=== PATIENT | female | born 1940 | race Caucasian/White ===

== ENCOUNTER 2020-04-06 22:06 | Inpatient (IN) | payer MEDICARE, OTHER ==
[~2020-04-06] VITALS: Ht 167.6 cm; Wt 91.4 kg
[~2020-04-06 22:06] MED LIST: ACET-2065 PO; ACID1TAB PO; ASCO500T7 PO; ATOR10TA9 PO; BETH10TA12 PO; CARV3.122 PO; FAMO20TA7 PO; GABA-827 PO; INSU100C5 SQ-INSULIN; INSU100V13 SQ; INSU100V5 SQ-INSULIN; LEVO125T5 PO; LEVO500T8 PO; LINE600T12 PO; LISI-167 PO; MYCO180T10 PO; MYCO250C PO; OXYC15TA75 PO; PRED2.5T PO; SODI650T PO; TACR1CAP5 PO; TAMS0.4C2 PO
--- NOTE | 2020-04-06 22:15 | NUR ---
pt BIB [facility] from [facility] c/o hypoxia. per report, pt is on 2L O2 via [place] at baseline and had to be increased to 5L at her facility where they stated that she was 65%. per [facility], when arrived on scene, pt was 89% and was palced on 2L and went back to 98%. upon arival, pt is currently 98-99% on 2L O2 via [place]. pt has no c/o SOB. per report pt was also sent for low Hgb at 7.4. pt was recently hospitlized and treated for GI bleed. pt also has hx of chronic anemia. pt is A&O x4. pale warm and dry. pt stated to [facility] that she was "dropped" by the staff at [facility] 2 months ago and has buttock pain
[2020-04-06] MEDS ORDERED: SODIUM CHLORIDE FLUSH 10ML SYR IVF ONE (22:30)
[2020-04-06 22:50] LABS: BASOPHILS # (AUTO) 0.01 x10^3/uL (0-0.1); BASOPHILS % (AUTO) 0 % (0-1); EOSINOPHILS # (AUTO) 0.08 x10^3/uL (0-0.4); EOSINOPHILS % (AUTO) 2 % (1-7); LYMPHOCYTES # (AUTO) 0.75 x10^3/uL (1-3.4); LYMPHOCYTES % (AUTO) 14 % (22-44); MD NO; MEAN CORPUSCULAR HEMOGLOBIN 30.4 pg (27.0-34.8); MEAN PLATELET VOLUME 8.1 fL (7.4-10.4); MONOCYTES # (AUTO) 0.34 x10^3/uL (0.2-0.8); MONOCYTES % (AUTO) 6 % (2-9); NEUTROPHILS % (AUTO) 78 % (42-75); PLATELET COUNT 154 x10^3/uL (130-400); RED BLOOD COUNT 2.55 x10^6/uL (3.82-5.3); RED CELL DISTRIBUTION WIDTH 16.9 % (9.6-15.2)
[2020-04-06 22:59] LABS: ALANINE AMINOTRANSFERASE 12 U/L (12-78); ALBUMIN 2.4 g/dL (3.4-5.0); ANION GAP 8 mmol/L (5-15); CALCIUM 8.5 mg/dL (8.5-10.1); CHLORIDE 102 mmol/L (98-107); CREATININE 2.43 mg/dL (0.55-1.02)
[2020-04-06 23:03] LABS: ALKALINE PHOSPHATASE 87 U/L (45-117); BILIRUBIN,TOTAL 0.5 mg/dL (0.2-1.0); TOTAL PROTEIN 5.4 g/dL (6.4-8.2); TROPONIN I < 0.015 ng/mL (0.000-0.045)
[2020-04-06] MEDS ORDERED: SODIUM CHLORIDE 0.9% 1,000 ML IV ONE (23:11)
--- NOTE | 2020-04-07 00:26 | NUR ---
hospitalist at bedside for eval for admission
[2020-04-07] MEDS ORDERED: SODIUM CHLORIDE 0.9% 1,000 ML IV SCH (00:37)
--- NOTE | 2020-04-07 00:50 | NUR ---
pt positioninf for comfort. pt watching TV
[2020-04-07] MEDS ORDERED: morphine SULFATE 10 MG/ML, 1ML IVPush PRN (01:00)
[2020-04-07] MEDS ORDERED: ONDANSETRON ODT 4 MG PO PRN (01:00)
[2020-04-07] MEDS ORDERED: ONDANSETRON 2MG/ML, 2ML IVPush PRN (01:00)
[2020-04-07] MEDS ORDERED: LABETALOL 5MG/ML, 20ML IVPush PRN (01:00)
[2020-04-07] MEDS ORDERED: OXYcodone IR 5MG TABLET PO PRN (01:00)
[2020-04-07] MEDS ORDERED: BISACODYL 10 MG SUPP PR PRN (01:00)
[2020-04-07] MEDS ORDERED: POLYETHYLENE GLYCOL 17 GM PACKET PO PRN (01:00)
[2020-04-07] MEDS ORDERED: DOCUSATE 100 MG CAPSULE PO PRN (01:00)
[2020-04-07] MEDS ORDERED: ACETAMINOPHEN 325 MG TABLET PO PRN (01:00)
[2020-04-07] MEDS ORDERED: PROMETHAZINE 25 MG/ML, 1ML IM PRN (01:00)
[2020-04-07 01:17] LABS: FREE T4 (FREE THYROXINE) 1.13 ng/dL (0.76-1.46)
--- NOTE | 2020-04-07 01:35 | NUR ---
pt is incontinent of stool. pt cleaned and prei care given. pt has a wound on coccyx area. wound care done with wound cleanser, hydrogel applied and non-adhesive dressing. bartrier cream applied to posterior area. fresh linens applied and pt placed on waffle mattress for comfort
--- NOTE | 2020-04-07 01:37 | NUR ---
bed assignment recieved, attmepting to call report
--- NOTE | 2020-04-07 01:42 | NUR ---
report called to Yesy SANTOS
--- NOTE | 2020-04-07 01:56 | NUR ---
paperwork that was sent from [facility] did not include aa medication list and pt is unsure of her medications. admit MD and recieving RN aware
[2020-04-07 02:16] VITALS: BP 147/54
[2020-04-07] MEDS ORDERED: GABA100C PO (04:17)
[2020-04-07] MEDS ORDERED: ATOR-2 PO (04:20)
[2020-04-07] MEDS ORDERED: BUME1TAB21 PO (04:21)
[2020-04-07] MEDS ORDERED: OMEP-231 PO (04:25)
[2020-04-07] MEDS ORDERED: ISOS30TA8 PO (04:29)
[2020-04-07] MEDS ORDERED: LEVO50TA5 PO (04:36)
[2020-04-07] MEDS ORDERED: INSU100V8 SQ ×2 (04:42→04:45)
[2020-04-07] MEDS ORDERED: FERR325T5 PO (04:42)
[2020-04-07] MEDS ORDERED: CARV-39 PO (04:50)
[2020-04-07] MEDS ORDERED: DILT120C83 PO (04:50)
[2020-04-07 05:17] LABS: ALBUMIN 2.3 g/dL (3.4-5.0); ANION GAP 5 mmol/L (5-15); CALCIUM 8.3 mg/dL (8.5-10.1); CHLORIDE 106 mmol/L (98-107)
[2020-04-07 05:20] LABS: ALANINE AMINOTRANSFERASE 10 U/L (12-78); ALKALINE PHOSPHATASE 82 U/L (45-117); BILIRUBIN,TOTAL 0.3 mg/dL (0.2-1.0); CHOL/HDL RATIO 2.6; CHOLESTEROL, TOTAL 111 mg/dL (140-239); CREATININE 2.07 mg/dL (0.55-1.02); HDL CHOL % 38 % (28-40); HDL CHOLESTEROL (DIRECT) 42 mg/dL (40-60); LDL CHOLESTEROL,CALCULATED 38 mg/dL (54-169); LDL/HDL RATIO 0.9 (0.5-3.0); TOTAL PROTEIN 4.8 g/dL (6.4-8.2); TRIGLYCERIDES 153 mg/dL (50-200); VLDL CHOLESTEROL 31 mg/dL (0-25)
[2020-04-07 05:32] LABS: MEAN CORPUSCULAR HEMOGLOBIN 30.3 pg (27.0-34.8); MEAN CORPUSCULAR HGB CONC 31.7 g/dL (32.4-35.8); MEAN CORPUSCULAR VOLUME 95.7 fL (80-100); MEAN PLATELET VOLUME 8.4 fL (7.4-10.4); PLATELET COUNT 148 x10^3/uL (130-400); RED BLOOD COUNT 2.33 x10^6/uL (3.82-5.3); RED CELL DISTRIBUTION WIDTH 17.2 % (9.6-15.2)
[2020-04-07 05:45] LABS: MICROSCOPIC INDICATED
[2020-04-07 06:05] LABS: BASOPHILS # (AUTO) 0.01 x10^3/uL (0-0.1); BASOPHILS % (AUTO) 0 % (0-1); EOSINOPHILS # (AUTO) 0.07 x10^3/uL (0-0.4); EOSINOPHILS % (AUTO) 2 % (1-7); LYMPHOCYTES # (AUTO) 0.78 x10^3/uL (1-3.4); LYMPHOCYTES % (AUTO) 18 % (22-44); MD SCAN; MONOCYTES # (AUTO) 0.35 x10^3/uL (0.2-0.8); MONOCYTES % (AUTO) 8 % (2-9); NEUTROPHILS % (AUTO) 72 % (42-75)
[2020-04-07] MEDS: INSULIN LISPRO 100 UNITS/ML, PEN SQ-INSULIN SCH ×4 (07:00→20:25)
[2020-04-07 07:34] VITALS: BP 154/71
[2020-04-07] MEDS: OMEPRAZOLE 20 MG CAPSULE.DR PO SCH ×2 (09:00→20:25)
[2020-04-07] MEDS: LEVOTHYROXINE 100 MCG TABLET PO SCH (09:21)
[2020-04-07] MEDS: BUMETANIDE 1 MG TABLET PO SCH (09:22)
[2020-04-07] MEDS: FERROUS SULFATE 325 MG TABLET PO SCH ×3 (09:22→20:25)
[2020-04-07] MEDS: CARVEDILOL 25 MG TABLET PO SCH ×2 (09:22→20:25)
[2020-04-07] MEDS: GABAPENTIN 100 MG CAPSULE PO SCH ×3 (09:22→20:25)
[2020-04-07] MEDS: DILTIAZEM 120 MG CAP.ER.24H PO SCH ×2 (09:22→20:25)
[2020-04-07] MEDS: ISOSORBIDE MONONITRATE ER 30 MG TABLET PO SCH (09:22)
[2020-04-07] MEDS: TACROLIMUS 1 MG CAPSULE PO SCH ×2 (09:23→17:55)
[2020-04-07 13:23] VITALS: BP 133/67
[2020-04-07 19:10] VITALS: BP 144/74
[2020-04-07] MEDS: ATORVASTATIN 80 MG TABLET PO SCH (20:25)
[2020-04-08 00:36] VITALS: BP 132/72
[2020-04-08 05:32] LABS: ANION GAP 6 mmol/L (5-15); CHLORIDE 106 mmol/L (98-107); CREATININE 1.93 mg/dL (0.55-1.02)
[2020-04-08] MEDS: TACROLIMUS 1 MG CAPSULE PO SCH ×2 (06:23→18:31)
[2020-04-08 07:59] VITALS: BP 145/76
[2020-04-08] MEDS: ISOSORBIDE MONONITRATE ER 30 MG TABLET PO SCH (08:03)
[2020-04-08] MEDS: INSULIN LISPRO 100 UNITS/ML, PEN SQ-INSULIN SCH ×4 (08:03→20:05)
[2020-04-08] MEDS: CARVEDILOL 25 MG TABLET PO SCH ×2 (08:04→20:04)
[2020-04-08] MEDS: BUMETANIDE 1 MG TABLET PO SCH (08:04)
[2020-04-08] MEDS: DILTIAZEM 120 MG CAP.ER.24H PO SCH ×2 (08:04→20:04)
[2020-04-08] MEDS: OMEPRAZOLE 20 MG CAPSULE.DR PO SCH ×2 (08:04→20:04)
[2020-04-08] MEDS: GABAPENTIN 100 MG CAPSULE PO SCH ×3 (08:04→20:04)
[2020-04-08] MEDS: LEVOTHYROXINE 100 MCG TABLET PO SCH (08:05)
[2020-04-08] MEDS: FERROUS SULFATE 325 MG TABLET PO SCH ×3 (08:05→20:04)
[2020-04-08] MEDS: POLYETHYLENE GLYCOL 17 GM PACKET PO SCH (11:07)
[2020-04-08] MEDS: SENNA/DOCUSATE TABLET PO SCH (13:01)
[2020-04-08 13:44] VITALS: BP 124/63
[2020-04-08 14:10] LABS: MEAN CORPUSCULAR HEMOGLOBIN 30.6 pg (27.0-34.8); MEAN CORPUSCULAR HGB CONC 31.7 g/dL (32.4-35.8); MEAN CORPUSCULAR VOLUME 96.4 fL (80-100); MEAN PLATELET VOLUME 8.1 fL (7.4-10.4); PLATELET COUNT 149 x10^3/uL (130-400); RED BLOOD COUNT 2.38 x10^6/uL (3.82-5.3); RED CELL DISTRIBUTION WIDTH 17.4 % (9.6-15.2)
[2020-04-08 14:25] LABS: MD MORPH REVIEW ONLY
[2020-04-08 14:26] LABS: <PLATELET ESTIMATE> ADEQUATE; <PLT MORPHOLOGY> NORMAL PLT MORPH; ANISOCYTOSIS 1+; HYPOCHROMIA 1+; MICROCYTOSIS 1+; OVALOCYTES 1+; SCHISTOCYTES 1+
[2020-04-08 19:19] VITALS: BP 144/71
[2020-04-08] MEDS: ATORVASTATIN 80 MG TABLET PO SCH (20:04)
[2020-04-09 01:18] VITALS: BP 138/75
[2020-04-09 05:25] LABS: MEAN CORPUSCULAR HEMOGLOBIN 30.9 pg (27.0-34.8); MEAN CORPUSCULAR HGB CONC 32.6 g/dL (32.4-35.8); MEAN CORPUSCULAR VOLUME 94.8 fL (80-100); MEAN PLATELET VOLUME 8.2 fL (7.4-10.4); PLATELET COUNT 143 x10^3/uL (130-400); RED BLOOD COUNT 2.38 x10^6/uL (3.82-5.3); RED CELL DISTRIBUTION WIDTH 17.4 % (9.6-15.2)
[2020-04-09 05:28] LABS: ALANINE AMINOTRANSFERASE 10 U/L (12-78); ALBUMIN 2.3 g/dL (3.4-5.0); ANION GAP 6 mmol/L (5-15); CALCIUM 8.6 mg/dL (8.5-10.1); CHLORIDE 107 mmol/L (98-107); CREATININE 1.59 mg/dL (0.55-1.02); IRON LEVEL 54 mcg/dL (50-170)
[2020-04-09 05:31] LABS: % IRON SATURATION 33 % (20-55); ALKALINE PHOSPHATASE 82 U/L (45-117); BILIRUBIN,TOTAL 0.5 mg/dL (0.2-1.0); TOTAL IRON BINDING CAPACITY 166 mcg/dL (250-450); TOTAL PROTEIN 4.9 g/dL (6.4-8.2)
[2020-04-09] MEDS: TACROLIMUS 1 MG CAPSULE PO SCH (05:47)
[2020-04-09 06:01] LABS: BASOPHILS # (AUTO) 0.02 x10^3/uL (0-0.1); BASOPHILS % (AUTO) 1 % (0-1); EOSINOPHILS # (AUTO) 0.12 x10^3/uL (0-0.4); EOSINOPHILS % (AUTO) 4 % (1-7); LYMPHOCYTES # (AUTO) 0.73 x10^3/uL (1-3.4); LYMPHOCYTES % (AUTO) 21 % (22-44); MD SCAN; MONOCYTES # (AUTO) 0.29 x10^3/uL (0.2-0.8); MONOCYTES % (AUTO) 8 % (2-9); NEUTROPHILS # (AUTO) 2.29 x10^3/uL (1.8-6.8); NEUTROPHILS % (AUTO) 66 % (42-75)
[2020-04-09 07:53] VITALS: BP 147/71
[2020-04-09] MEDS: BUMETANIDE 1 MG TABLET PO SCH (09:04)
[2020-04-09] MEDS: INSULIN LISPRO 100 UNITS/ML, PEN SQ-INSULIN SCH ×2 (09:04→11:39)
[2020-04-09] MEDS: OMEPRAZOLE 20 MG CAPSULE.DR PO SCH (09:05)
[2020-04-09] MEDS: POLYETHYLENE GLYCOL 17 GM PACKET PO SCH (09:05)
[2020-04-09] MEDS: ISOSORBIDE MONONITRATE ER 30 MG TABLET PO SCH (09:05)
[2020-04-09] MEDS: SENNA/DOCUSATE TABLET PO SCH (09:05)
[2020-04-09] MEDS: LEVOTHYROXINE 100 MCG TABLET PO SCH (09:05)
[2020-04-09] MEDS: CARVEDILOL 25 MG TABLET PO SCH (09:06)
[2020-04-09] MEDS: GABAPENTIN 100 MG CAPSULE PO SCH (09:06)
[2020-04-09] MEDS: FERROUS SULFATE 325 MG TABLET PO SCH (09:06)
[2020-04-09] MEDS: DILTIAZEM 120 MG CAP.ER.24H PO SCH (09:06)
[2020-04-09] MEDS ORDERED: POLY17PO5 PO (11:56)
[2020-04-09] MEDS ORDERED: SENN-193 PO (11:56)
[2020-04-09 12:46] VITALS: BP 109/64
== END 2020-04-09 13:52 | DRG 698 ==
LOC: ED 22:45 → EDIP 23:55 → UNDOADMIN 23:55 → EDIP 04-07 00:37 → 3N 04-07 02:01
PROVIDERS: ADMIT Internal Medicine; ATTEND Internal Medicine
DX: T86.19 Other complication of kidney transplant (principal); J96.21 Acute and chronic respiratory failure with hypoxia; N17.8 Other acute kidney failure; E86.0 Dehydration; D64.9 Anemia, unspecified; K59.00 Constipation, unspecified; M53.3 Sacrococcygeal disorders, not elsewhere classified; N18.3 Chronic kidney disease, stage 3 (moderate); I12.9 Hypertensive chronic kidney disease with stage 1 through stage 4 chronic kidney disease, or unspecified chronic kidney disease; E11.40 Type 2 diabetes mellitus with diabetic neuropathy, unspecified; E11.22 Type 2 diabetes mellitus with diabetic chronic kidney disease; Z93.59 Other cystostomy status; E03.9 Hypothyroidism, unspecified; I48.91 Unspecified atrial fibrillation; M81.0 Age-related osteoporosis without current pathological fracture; W18.39XA Other fall on same level, initial encounter; Y93.89 Activity, other specified; Y92.89 Other specified places as the place of occurrence of the external cause; Y99.8 Other external cause status; Z88.0 Allergy status to penicillin; Z88.2 Allergy status to sulfonamides; Z88.8 Allergy status to other drugs, medicaments and biological substances; J30.89 Other allergic rhinitis; Y83.0 Surgical operation with transplant of whole organ as the cause of abnormal reaction of the patient, or of later complication, without mention of misadventure at the time of the procedure; Z87.440 Personal history of urinary (tract) infections; Z89.511 Acquired absence of right leg below knee; Z98.1 Arthrodesis status
CPT/HCPCS: 36415; 71045; 72190; 72192; 80048; 80053; 80061; 80197; 81001; 82728; 82962; 83036; 83540; 83550; 83690; 83735; 84100; 84439; 84443; 84484; 85025; 86850; 86900; 87086; 93005; G0378; J7507; J7517; J1815; J7030; J7512